=== PATIENT | female | born 1985 | race African-American/Black ===

== ENCOUNTER 2019-02-24 01:26 | Emergency (ER) | payer MEDICAID ==
[~2019-02-24] VITALS: Ht 188 cm; Wt 109.0 kg
[~2019-02-24 01:26] MED LIST: IBUP100T7
[2019-02-24] MEDS ORDERED: KETOROLAC 60MG/2ML VIAL IM STA (04:08)
[2019-02-24 05:27] LABS: CLARITY URINE CLEAR (CLEAR); COLOR URINE YELLOW (YELLOW); KETONES URINE 4+ (NEGATIVE); LEUKOCYTE ESTERASE URINE NEGATIVE (NEGATIVE); NITRITE URINE NEGATIVE (NEGATIVE); OCCULT BLOOD URINE NEGATIVE (NEGATIVE); PH URINE 5.5 (4.5-8.0); PROTEIN URINE TRACE (NEGATIVE); SPECIFIC GRAVITY URINE 1.025 (1.005-1.030)
[2019-02-24] MEDS ORDERED: PENICILLIN G BENZATHINE 1,200,000 UNITS/2ML SYR IM ONE (05:45)
[2019-02-24 06:30] VITALS: BP 150/79
== END 2019-02-24 06:30 | disposition home or self-care (01) ==
LOC: ER 01:26
DX: J02.0 Streptococcal pharyngitis (principal); M54.5 Low back pain; F12.10 Cannabis abuse, uncomplicated
CPT/HCPCS: 81003; 81025; 87430; 96372; 99283; J0561; J1885